=== PATIENT | male | born 1985 | race Native Hawaiian/Other Pacific Islander ===

== ENCOUNTER 2016-10-06 08:21 | Emergency (ER) | payer OTHER ==
[~2016-10-06] VITALS: Ht 182.9 cm; Wt 90.7 kg
[2016-10-06 09:34] LABS: PLATELET COUNT 249 K/uL (142-355)
[2016-10-06 10:00] LABS: POTASSIUM 3.6 mmol/L (3.6-5.2); SODIUM 140 mmol/L (136-145)
[2016-10-06 10:45] VITALS: BP 140/94; TEMP 97.9
== END 2016-10-06 10:48 | disposition home or self-care (01) ==
LOC: ED 08:21
PROVIDERS: Specialist
DX: A08.4 Viral intestinal infection, unspecified (principal); R11.2 Nausea with vomiting, unspecified; J20.8 Acute bronchitis due to other specified organisms
CPT/HCPCS: 80048; 85027; 96361; 96374; 99284; J2550

== ENCOUNTER 2017-01-12 17:03 | Emergency (ER) | payer OTHER ==
[~2017-01-12] VITALS: Ht 182.9 cm; Wt 81.6 kg
[2017-01-12 17:00] VITALS: BP 154/99; TEMP 98
== END 2017-01-12 17:30 | disposition home or self-care (01) ==
LOC: ED 17:03
DX: H16.133 Photokeratitis, bilateral (principal); W89.8XXA Exposure to other man-made visible and ultraviolet light, initial encounter; Y92.69 Other specified industrial and construction area as the place of occurrence of the external cause
CPT/HCPCS: 99282